=== PATIENT | male | born 1965 | race Caucasian/White ===

== ENCOUNTER 2020-10-20 01:00 | Emergency (ER) | payer BC, SELFPAY ==
[~2020-10-20] VITALS: Ht 175.3 cm; Wt 68.0 kg
[2020-10-20 01:03] VITALS: Ht 175.3 cm; Wt 68.0 kg
[2020-10-20 03:38] VITALS: BP 122/78
== END 2020-10-20 03:38 | disposition home or self-care (01) ==
LOC: ED 01:00
DX: R55 Syncope and collapse (principal); R51.9 Headache, unspecified; H92.02 Otalgia, left ear
CPT/HCPCS: J1885; J8597